=== PATIENT | female | born 1940 | race Caucasian/White ===

== ENCOUNTER 2016-12-15 08:45 | Inpatient (IN) ==
--- NOTE | 2016-12-15 09:18 | Emergency Department Note ---
Disposition Clinical Impression: Pyelonephritis Pneumonia Qualifiers: Pneumonia type: due to unspecified organism Laterality: unspecified laterality Lung location: unspecified part of lung Qualified Code(s): J18.9 - Pneumonia, unspecified organism Disposition: Admitted As Inpatient Condition: Good General Adult HPI - General Chief complaint: ED Dizziness Stated complaint: dizzy slid out of bed Time Seen by Provider: 12/15/16 08:56 Source: patient, EMS Mode of arrival: private vehicle Limitations: no limitations Nursing Notes Reviewed: Yes Vital Signs Reviewed: Yes - History of Present Illness HPI Narrative: Patient presents to the ED via EMS after "sliding out of bed" this morning. States she got up and sat on the side of the bed and when she went to get up she simply slid off the side of bed. She denies feeling lightheaded, dizzy or short of breath at the time. She did not experience any chest pain. States she just could not get back up on her own so her called EMS. She did not strike her head or lose consciousness. She does report a productive cough over the past 2 days with some green sputum. Denies any nasal congestion, rhinorrhea or sneezing. States she has had some chills off and on for the past 4 days but has not been aware of any fever. She does admit to intermittent shortness of breath with exertion over the past few months but has not sought medical care for this. She also has had occasional swelling in her legs but none currently. She has no history of any form of chronic lung disease. She is not aware of any history of heart failure. She also has had one week of urinary frequency, urgency and dysuria. States she was treated by her PCP for a UTI one month ago. States she had some vomiting a few days ago but no nausea now. Denies any recent travel or sick contacts. Pain Scale: 0 - Related Data Home Medications Medication Instructions Recorded Confirmed ALPRAZolam [Xanax 0.5 MG Tablet] 0.5 mg PO TID 04/30/15 12/15/16 Bimatoprost [Lumigan] 5 ml OP HS 04/30/15 12/15/16 Cyclosporine [Restasis] 1 each OP DAILY 04/30/15 12/15/16 Furosemide [Lasix] 20 mg PO BID 04/30/15 12/15/16 Metoprolol [Lopressor] 50 mg PO BID 04/30/15 12/15/16 Montelukast [Singulair] 10 mg PO HS 04/30/15 12/15/16 Sertraline [Zoloft] 100 mg PO DAILY 04/30/15 12/15/16 Biotin 1 mg PO DAILY 05/25/16 12/15/16 Calcium Carbonate [Calcium] 600 mg PO DAILY 05/25/16 12/15/16 Cyanocobalamin (B-12) [Vitamin B12] 1,000 mcg SQ QMONTH 05/25/16 12/15/16 Herbal Complex No.174 450 mg PO DAILY 05/25/16 12/15/16 [Echinacea-Goldenseal] Meloxicam 15 mg PO DAILY 05/25/16 12/15/16 Nitroglycerin [Nitrostat] 0.4 mg SL AD PRN 05/25/16 12/15/16 Omeprazole [PriLOSEC] 20 mg PO BID 05/25/16 12/15/16 Oxycodone HCl/Acetaminophen 1 each PO Q4H PRN 09/14/16 12/15/16 [Percocet 7.5-325 mg Tablet] Allergies Allergy/AdvReac Type Severity Reaction Status Date / Time doxycycline AdvReac Gastrointestinal Verified 12/15/16 08:46 Upset sutures AdvReac Blister Uncoded 12/15/16 08:46 Constitutional: Reports: chills. Denies: fever, weakness, weight change Eyes: Denies: eye pain, eye discharge, vision change ENT ED: Denies: ear pain, throat pain, dental pain, hearing loss, epistaxis, congestion, dysphagia Cardiovascular: Denies: chest pain, palpitations, dyspnea on exertion, edema, syncope Respiratory: Reports: as per HPI, cough, dyspnea, sputum production. Denies: wheezes, hemoptysis, stridor Gastrointestinal: Denies: abdominal pain, nausea, vomiting, diarrhea, constipation, hematemesis, melena, hematochezia Genitourinary: Reports: urgency, dysuria, frequency. Denies: hematuria, discharge Musculoskeletal: Denies: back pain, neck pain, arthralgia, myalgia Integumentary: Denies: rash, abrasion, lesions Neurological: Denies: headache, weakness, numbness, paresthesias, confusion, abnormal gait, vertigo Psychiatric: Denies: anxiety, depression, suicidal thoughts, homicidal thoughts , auditory hallucinations, visual hallucinations Endocrine: Denies: fatigue Hematological/Lymphatic: Denies: easy bleeding, easy bruising Allergic/Immunologic: Denies: facial swelling, urticaria Past Medical History - Past Medical History Medical history: Reports: coronary artery disease, GERD, hypertension Surgical history: Reports: cholecystectomy, hysterectomy Psychiatric history: Reports: anxiety, depression 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 - Social History Smoking Status: Never smoker Smokeless Tobacco Status: No Alcohol use: Reports: none Drug use: Reports: none Physical Exam - General Limitations: no limitations General appearance: alert, in no apparent distress - Head Head exam: atraumatic, normocephalic, normal inspection - Eye Eye exam: Present: normal appearance, PERRL, EOMI - ENT ENT exam: normal exam, normal oropharynx, mucous membranes moist - Neck Neck exam: Present: normal inspection, full ROM, trachea midline - Chest Chest inspection: Present: normal inspection, symmetric chest wall rise - Respiratory Respiratory exam: Present: normal lung sounds bilaterally. Absent: respiratory distress, accessory muscle use - Cardiovascular Cardiovascular exam: Present: regular rate, normal rhythm, normal heart sounds - Abdominal Exam Abdominal exam: Present: soft, Non-Tender. Absent: tenderness, distention, guarding, rebound, rigidity - Extremities Exam Extremities exam: Present: normal inspection, full ROM. Absent: tenderness, pedal edema - Back Exam Back exam: Present: normal inspection, full ROM. Absent: tenderness, CVA tenderness (R), CVA tenderness (L) - Neurological Exam Neurological exam: Present: alert, oriented X3 - Psychiatric Psychiatric exam: Present: normal affect, normal mood - Skin Skin exam: Present: warm, dry, intact, normal color Course Course Narrative: Patient presents to the ED with a few days of productive cough and chills as well as 1 week of urinary symptoms with what appears to have been any episode of generalized weakness this morning. On arrival oxygen saturation is 90-91% on room air but she has no respiratory distress. Lungs are clear to auscultation. She has a temperature of 100. Suspicion at this time would be for community acquired pneumonia and/or UTI or pyelonephritis. Will check routine labs and obtain chest x-ray. - Reevaluation(s) Reevaluation #1: Laboratory studies are notable for leukocytosis with left shift. Lactic acid is normal/ Urinalysis is positive for UTI. Chest x-ray shows only some basilar atelectasis with no overt pneumonia although this still a suspicion given her low oxygen saturation and productive cough. Patient does meet criteria for pyelonephritis in addition and based on her symptomatology, comorbidities and low oxygen saturation will require admission. I discussed all test results with the patient and she is agreeable to admission. Will give Tylenol for the low-grade fever and start IV antibiotics. Will contact the hospitalist on-call , Dr. Menard for admission. Reevaluation #2: I spoke to the hospitalist on-call, Dr. Menard, who has agreed to admit the patient. Vital Signs O2 Sat by Pulse Oximetry 94 12/15/16 08:46 Temperature 100.0 F H 12/15/16 08:47 Pulse Rate 79 12/15/16 11:53 Respiratory Rate 18 12/15/16 11:53 Blood Pressure 129/53 12/15/16 11:53 O2 Sat by Pulse Oximetry 95 12/15/16 11:53 Oxygen Delivery Oxygen Delivery Nasal Cannula Medical Decision Making - Differential Diagnosis Pneumonia, UTI, possible arthritis, sepsis, urosepsis - Medical Records Medical records reviewed: Yes I reviewed the patient's medical records. - Lab Data Lab results reviewed: Yes I reviewed the patient's lab results. Result diagrams: 12/15/16 09:25 12/15/16 09:25 Lab Results 12/15/16 12/15/16 12/15/16 Range/Units 09:25 09:25 09:25 WBC 15.1 H (4.3-11.1) K/mcL RBC 4.72 (3.82-4.97) M/mcL Hgb 13.5 (11.5-15.4) g/dL Hct 40.5 (35.3-44.9) % MCV 85.8 (83.0-100.0) fL MCH 28.6 (28.0-33.3) pg MCHC 33.3 (31.6-35.5) g/dL RDW 14.6 H (11.5-14.5) % Plt Count 187 (140-400) K/mcL MPV 11.2 (9.4-12.4) fL Immature Gran % 1.3 (0-4) % Seg Neutrophils % 88.0 % Lymphocytes % 2.9 % Monocytes % 7.5 % Eosinophils % 0.0 % Basophils % 0.3 % Neutrophils # 13.3 H (1.6-8.9) K/mcL Lymphocytes # 0.4 L (0.6-4.6) K/mcL Monocytes # 1.1 (0.0-1.3) K/mcL Eosinophils # 0.0 (0.0-0.6) K/mcL Basophils # 0.1 (0.0-0.2) K/mcL VBG Lactic Acid 1.4 (0.5-2.2) mmol/L Sodium 135 L (136-145) mEq/L Potassium 4.1 (3.5-4.5) mEq/L Chloride 100 (98-109) mEq/L Carbon Dioxide 24 (19-29) mEq/L BUN 23 H (7-20) mg/dL Creatinine 1.00 (0.57-1.11) mg/dL Est GFR ( Amer) > 60 (> 60) Est GFR (Non-Af Amer) 54 L (> 60) BUN/Creatinine Ratio 23 (6-26) Glucose 217 H (70-99) mg/dL Calculated Osmolality 290 (280-300) Calcium 9.3 (8.6-10.8) mg/dL B-Natriuretic Peptide (0-100) pg/mL Urine Color (Yellow) Urine Clarity (Clear) Urine pH (5.0-8.0) pH Units Ur Specific [place] (1.010-1.025) Urine Protein (Neg-Trace) mg/dL Urine Glucose (UA) (Normal) mg/dL Urine Ketones (Negative) mg/dL Urine Blood (Negative) Urine Nitrite (Negative) Urine Bilirubin (Negative) Urine Urobilinogen (Normal) mg/dL Ur Leukocyte Esterase (Negative) Urine Microscopic RBC (0-3) per hpf Urine Microscopic WBC (0-3) per hpf Ur Squamous Epith Cells (None-Few) per lpf Urine Bacteria (None-Few) per hpf Urine Mucus (Few) Ur Culture Indicated? (NO) 12/15/16 12/15/16 Range/Units 09:25 10:04 WBC (4.3-11.1) K/mcL RBC (3.82-4.97) M/mcL Hgb (11.5-15.4) g/dL Hct (35.3-44.9) % MCV (83.0-100.0) fL MCH (28.0-33.3) pg MCHC (31.6-35.5) g/dL RDW (11.5-14.5) % Plt Count (140-400) K/mcL MPV (9.4-12.4) fL Immature Gran % (0-4) % Seg Neutrophils % % Lymphocytes % % Monocytes % % Eosinophils % % Basophils % % Neutrophils # (1.6-8.9) K/mcL Lymphocytes # (0.6-4.6) K/mcL Monocytes # (0.0-1.3) K/mcL Eosinophils # (0.0-0.6) K/mcL Basophils # (0.0-0.2) K/mcL VBG Lactic Acid (0.5-2.2) mmol/L Sodium (136-145) mEq/L Potassium (3.5-4.5) mEq/L Chloride (98-109) mEq/L Carbon Dioxide (19-29) mEq/L BUN (7-20) mg/dL Creatinine (0.57-1.11) mg/dL Est GFR ( Amer) (> 60) Est GFR (Non-Af Amer) (> 60) BUN/Creatinine Ratio (6-26) Glucose (70-99) mg/dL Calculated Osmolality (280-300) Calcium (8.6-10.8) mg/dL B-Natriuretic Peptide 155 H (0-100) pg/mL Urine Color Yellow (Yellow) Urine Clarity Slightly Cloudy A (Clear) Urine pH 5.5 (5.0-8.0) pH Units Ur Specific [place] 1.015 (1.010-1.025) Urine Protein 30 H (Neg-Trace) mg/dL Urine Glucose (UA) Normal (Normal) mg/dL Urine Ketones Negative (Negative) mg/dL Urine Blood Small H (Negative) Urine Nitrite Negative (Negative) Urine Bilirubin Negative (Negative) Urine Urobilinogen Normal (Normal) mg/dL Ur Leukocyte Esterase Large H (Negative) Urine Microscopic RBC 3-5 H (0-3) per hpf Urine Microscopic WBC TNTC H (0-3) per hpf Ur Squamous Epith Cells Few (None-Few) per lpf Urine Bacteria Moderate H (None-Few) per hpf Urine Mucus Few (Few) Ur Culture Indicated? YES A (NO) - Radiology Data Radiology results reviewed: Yes I reviewed the patient's radiology results. ITS Impressions Chest X-Ray 12/15/16 09:15 IMPRESSION: 1. No definite acute cardiopulmonary abnormality. 2. There appears to be minimal left basilar atelectasis. D/ / Eduard Washington MD / Eduard Washington MD Interpreting Provider: Eduard Washington MD
[2016-12-15 10:00] LABS: Basophils # 0.1 K/mcL (0.0-0.2); Basophils % 0.3 %; Hematocrit 40.5 % (35.3-44.9); Hemoglobin 13.5 g/dL (11.5-15.4); Immature Granulocytes % 1.3 % (0-4); Lymphocytes # 0.4 K/mcL (0.6-4.6); Lymphocytes % 2.9 %; Mean Corpuscular HGB Conc 33.3 g/dL (31.6-35.5); Mean Corpuscular Hemoglobin 28.6 pg (28.0-33.3); Mean Corpuscular Volume 85.8 fL (83.0-100.0); Mean Platelet Volume 11.2 fL (9.4-12.4); Monocytes # 1.1 K/mcL (0.0-1.3); Monocytes % 7.5 %; Neutrophils # 13.3 K/mcL (1.6-8.9); Platelet Count 187 K/mcL (140-400); Red Blood Count 4.72 M/mcL (3.82-4.97); Red Cell Distribution Width 14.6 % (11.5-14.5)
[2016-12-15 10:10] LABS: BUN/Creatinine Ratio 23 (6-26); Blood Urea Nitrogen 23 mg/dL (7-20); Calcium 9.3 mg/dL (8.6-10.8); Carbon Dioxide 24 mEq/L (19-29); Chloride 100 mEq/L (98-109); Glucose 217 mg/dL (70-99); Osmolality,Calculated 290 (280-300); Potassium 4.1 mEq/L (3.5-4.5); Sodium 135 mEq/L (136-145); eGFR For African Americans > 60 (> 60); eGFR For Non-African Americans 54 (> 60)
[2016-12-15 10:11] LABS: Bilirubin,Urine Negative (Negative); Blood,Urine Small (Negative); Clarity,Urine Slightly Cloudy (Clear); Color,Urine Yellow (Yellow); Glucose,Urine (UA) Normal (Normal); Ketones,Urine Negative (Negative); Leukocyte Esterase,Urine Large (Negative); Nitrite,Urine Negative (Negative); PH,Urine 5.5 pH Units (5.0-8.0); Protein,Urine 30 mg/dL (Neg-Trace); Specific Gravity,Urine 1.015 (1.010-1.025); Urobilinogen,Urine Normal (Normal)
[2016-12-15 10:29] LABS: Bacteria,Urine Moderate per hpf (None-Few); Mucus,Urine Few (Few); Squamous Epithelial Cell,Urine Few per lpf (None-Few); WBC,Urine TNTC per hpf (0-3)
[2016-12-15] MEDS ORDERED: Levofloxacin 750 MG/150 ML 750 MG/150 ML BAG IVPB ONE (11:10)
[2016-12-15] MEDS ORDERED: Acetaminophen 325 MG TABLET PO ONE (11:10)
[2016-12-15] MEDS ORDERED: ALPRAZolam 0.5 MG TABLET PO PRN (12:51)
[2016-12-15] MEDS ORDERED: *HR* OxyCODONE/APAP 7.5/325 TABLET PO PRN (12:51)
[2016-12-15] MEDS ORDERED: Naloxone 0.4 MG/ML INJ IVP PRN ×2 (12:58→13:21)
[2016-12-15] MEDS: *HR* OxyCODONE/APAP 7.5/325 TABLET PO PRN ×2 (13:57→22:17)
[2016-12-15] MEDS ORDERED: Furosemide 20 MG TABLET PO SCH ×2 (17:00→21:00)
[2016-12-16] MEDS: ALPRAZolam 0.5 MG TABLET PO PRN ×2 (00:13→22:18)
[2016-12-16 04:35] LABS: Acinetobacter baumannii by PCR Not Detected (Not Detect); Candida albicans by PCR Not Detected (Not Detect); Candida glabrata by PCR Not Detected (Not Detect); Candida krusei by PCR Not Detected (Not Detect); Candida parapsilosis by PCR Not Detected (Not Detect); Candida tropicalis by PCR Not Detected (Not Detect); Enterococcus by PCR Not Detected (Not Detect); Klebsiella oxytoca by PCR Not Detected (Not Detect); Klebsiella pneumoniae by PCR Not Detected (Not Detect); Pseudomonas aeruginosa by PCR Not Detected (Not Detect); Serratia marcescens by PCR Not Detected (Not Detect); Staphylococcus aureus by PCR Not Detected (Not Detect); Streptococcus agalactiae(B)PCR Not Detected (Not Detect); Streptococcus by PCR Not Detected (Not Detect); Streptococcus pneumoniae PCR Not Detected (Not Detect); Streptococcus pyogenes (A) PCR Not Detected (Not Detect); blaKPC Carbapenem-Resist Gene Not Detected (Not Detect)
[2016-12-16 04:40] LABS: Escherichia coli by PCR ***DETECTED*** (Not Detect)
[2016-12-16 05:10] LABS: Basophils # 0.1 K/mcL (0.0-0.2); Basophils % 0.5 %; Eosinophils # 0.1 K/mcL (0.0-0.6); Eosinophils % 0.6 %; Hematocrit 37.5 % (35.3-44.9); Hemoglobin 12.3 g/dL (11.5-15.4); Immature Granulocytes % 1.4 % (0-4); Lymphocytes # 0.7 K/mcL (0.6-4.6); Mean Corpuscular HGB Conc 32.8 g/dL (31.6-35.5); Mean Corpuscular Hemoglobin 28.1 pg (28.0-33.3); Mean Corpuscular Volume 85.8 fL (83.0-100.0); Monocytes % 10.2 %; Neutrophils # 7.8 K/mcL (1.6-8.9); Platelet Count 179 K/mcL (140-400); Red Blood Count 4.37 M/mcL (3.82-4.97); Red Cell Distribution Width 14.7 % (11.5-14.5); Segmented Neutrophils % 80.3 %
[2016-12-16 05:32] LABS: BUN/Creatinine Ratio 25 (6-26); Blood Urea Nitrogen 21 mg/dL (7-20); Calcium 9.3 mg/dL (8.6-10.8); Carbon Dioxide 24 mEq/L (19-29); Chloride 102 mEq/L (98-109); Glucose 169 mg/dL (70-99); Osmolality,Calculated 291 (280-300); Sodium 137 mEq/L (136-145); eGFR For African Americans > 60 (> 60); eGFR For Non-African Americans > 60 (> 60)
[2016-12-16] MEDS: *HR* OxyCODONE/APAP 7.5/325 TABLET PO PRN ×3 (07:00→21:02)
[2016-12-16] MEDS: Furosemide 20 MG TABLET PO SCH (08:05)
--- NOTE | 2016-12-16 09:23 | Internal Med History&Physical ---
Date of Encounter: 12/15/16 Time of Encounter: 16:30 Assessment and Plan (1) Pyelonephritis Current visit: Yes Status: Acute She was given IV Levaquin in emergency room. I will give IV Rocephin with lactobacillus. Urine culture has been sent. (2) Azotemia Current visit: Yes Status: Acute Will hold meloxicam and reduce Lasix dose. Recheck labs in a.m. (3) Hyperglycemia Current visit: Yes Status: Acute We will check FBS in a.m. and hemoglobin A1c. (4) Hypertension Current visit: Yes Status: Chronic Continue Lopressor and reduced Lasix dose. Qualifiers: Hypertension type: essential hypertension Qualified Code(s): I10 - Essential (primary) hypertension Internal Medicine - H&P: HPI Chief complaint: Fever and UTI Admitted From: Home Plans for Post Hospital Care: Home History of present illness: Ms. Dumont is a 76 year old female who came to emergency room stating she had onset of fever and urinary tract infection symptoms the previous evening. She attempted to get out of bed approximately 7 AM the morning of admission but was weak and slid to the floor without injury. She was brought to emergency room and evaluated and found to have evidence of UTI. She was [facility] floor for ongoing care needs. She has had multiple UTIs in the past with the last one approximately 3 months ago. She has had bladder suspension surgery on 2 occasions in the past. She has not had visible hematuria. She had nausea but no vomiting. Past Med Surg Social Fam HX - Past Medical History Medical history: coronary artery disease, GERD, hypertension Psychiatric history: anxiety, depression - Past Surgical History Surgical History: cholecystectomy, hysterectomy - Social History Smoking Status: Never smoker Smokeless Tobacco Status: No Alcohol use: none Drug use: none Internal Medicine - H&P: Meds ALPRAZolam [Xanax 0.5 MG Tablet] 0.5 mg PO TID 04/30/15 [History] Bimatoprost [Lumigan] 5 ml OP HS 04/30/15 [History] Cyclosporine [Restasis] 1 each OP DAILY 04/30/15 [History] Furosemide [Lasix] 20 mg PO BID 04/30/15 [History] Metoprolol [Lopressor] 50 mg PO BID 04/30/15 [History] Montelukast [Singulair] 10 mg PO HS 04/30/15 [History] Sertraline [Zoloft] 100 mg PO DAILY 04/30/15 [History] Biotin 1 mg PO DAILY 05/25/16 [History] Calcium Carbonate [Calcium] 600 mg PO DAILY 05/25/16 [History] Cyanocobalamin (B-12) [Vitamin B12] 1,000 mcg SQ QMONTH 05/25/16 [History] Herbal Complex No.174 [Echinacea-Goldenseal] 450 mg PO DAILY 05/25/16 [History] Meloxicam 15 mg PO DAILY 05/25/16 [History] Nitroglycerin [Nitrostat] 0.4 mg SL AD PRN 05/25/16 [History] Omeprazole [PriLOSEC] 20 mg PO BID 05/25/16 [History] Oxycodone HCl/Acetaminophen [Percocet 7.5-325 mg Tablet] 1 each PO Q4H PRN 09/14 [History] Allergies doxycycline Adverse Reaction (Verified 12/15/16 08:46) Gastrointestinal Upset sutures Adverse Reaction (Uncoded 12/15/16 08:46) Blister Suture glue All Systems PM: A 10-system review of systems was performed and is negative for pertinent findings except as documented above in the HPI. Review of systems: Gen.: She states her weight has been stable the past few months Cardiovascular: She has history of hypertension but no HI heart failure angina DVT or pulmonary embolus Respiratory: She is a lifelong nonsmoker and has no known chronic lung disease GI: She has had cholecystectomy. She has occasional GERD symptoms. She denies disorders of her liver or exocrine pancreas : As per history of present illness Neurologic: She denies large distribution strokes or seizures Endocrine: She denies diabetes thyroid disease or hyperlipidemia Hematology/oncology: She denies blood disorders cancers or anemia Psychiatric: She has history of depression and anxiety. 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 She has had back surgery with lucas placement. She denies gout. - Constitutional Vitals: Temp Pulse Resp BP Pulse Ox 98.9 F 119 16 129/83 95 12/16/16 06:31 12/16/16 06:31 12/16/16 06:31 12/16/16 06:31 12/16/16 06:31 Exam: Gen.: She is a well-developed well-nourished female who appears in no severe distress at present time. HEENT: Head is atraumatic and normocephalic. Eyes: EOMI. There is no scleral icterus. Mouth: Mucosa is moist. Neck: Supple and nontender. There is no thyromegaly or adenopathy noted. Heart: Regular without murmurs gallops or ectopics. Lungs: No wheezes or crackles are heard. Abdomen: Soft and nontender. No masses or guarding noted. Extremities: There is no cyanosis edema or clubbing noted. Dorsalis pedis and posterior tibial pulses are trace to 1+ palpable bilaterally. She has DJD changes of her hands. Neurologic: Mental status: She is talkative and a good historian. Cranial nerves: Smile is symmetric. Forehead wrinkles bilaterally. Tongue protrudes midline. EOMI. Motor: There is no pronator drift. Cerebellar: Finger to nose is intact bilaterally. Skin: Warm and dry Internal Med - H&P Results - Labs CBC & Chem 7: 12/16/16 04:31 12/16/16 04:31 Labs: Short CBC 12/16/16 Range/Units 04:31 WBC 9.7 (4.3-11.1) K/mcL Hgb 12.3 (11.5-15.4) g/dL Hct 37.5 (35.3-44.9) % Plt Count 179 (140-400) K/mcL Neutrophils # 7.8 (1.6-8.9) K/mcL BMP 12/16/16 04:31 Sodium 137 Potassium 4.0 Chloride 102 Carbon Dioxide 24 BUN 21 H Creatinine 0.84 Glucose 169 H Calcium 9.3 - VTE Reasons for not Prescribing Prophylaxis: Treatment not Indicated - Low risk for VTE
--- NOTE | 2016-12-16 10:42 | Internal Med Progress Note ---
Date of Encounter: 12/16/16 Time of Encounter: 10:30 - Assessment and plan (1) Pyelonephritis Current Visit: Yes Status: Acute Assessment and plan: December 16. Lab results show Escherichia coli in urine and likely blood cultures. Sensitivity report is pending. Continue Rocephin with lactobacillus. (2) Azotemia Current Visit: Yes Status: Resolved Assessment and plan: December 16. Now resolved. Remain off meloxicam and on reduced Lasix dose. (3) Hyperglycemia Current Visit: Yes Status: Acute Assessment and plan: December 16. We will check hemoglobin A1c in a.m. (4) Hypertension Current Visit: Yes Status: Chronic Assessment and plan: December 16. Continue Lopressor and reduce Lasix dose. Qualifiers: Hypertension type: essential hypertension Qualified Code(s): I10 - Essential (primary) hypertension - Subjective Interval history: December 16. She has no new complaints. - Constitutional Vitals: Temp Pulse Resp BP Pulse Ox 98.4 F 69 16 121/69 95 12/16/16 10:16 12/16/16 10:16 12/16/16 10:16 12/16/16 10:16 12/16/16 06:31 Exam: She is resting comfortably in bed. Her affect is bright and cheerful. I reviewed her medications and lab reports. Internal Medicine: Result - Labs CBC & Chem 7: 12/16/16 04:31 12/16/16 04:31 Labs: Short CBC 12/16/16 Range/Units 04:31 WBC 9.7 (4.3-11.1) K/mcL Hgb 12.3 (11.5-15.4) g/dL Hct 37.5 (35.3-44.9) % Plt Count 179 (140-400) K/mcL Neutrophils # 7.8 (1.6-8.9) K/mcL BMP 12/16/16 04:31 Sodium 137 Potassium 4.0 Chloride 102 Carbon Dioxide 24 BUN 21 H Creatinine 0.84 Glucose 169 H Calcium 9.3 - VTE Reasons for not Prescribing Prophylaxis: Treatment not Indicated - Low risk for VTE Consult Discharge Plan - Plan Referrals: Cam Silva Jr, MD [Primary Care Provider] - 1 week
[2016-12-16] MEDS: *HR* Enoxaparin 40 MG/0.4 ML SYRINGE SQ SCH (14:28)
[2016-12-16] MEDS: Lactobacillus 1 EACH CAP.SPRINK PO SCH (21:02)
[2016-12-17] MEDS: *HR* OxyCODONE/APAP 7.5/325 TABLET PO PRN ×2 (01:23→05:46)
[2016-12-17] MEDS: *HR* Enoxaparin 40 MG/0.4 ML SYRINGE SQ SCH (05:35)
[2016-12-17] MEDS: Furosemide 20 MG TABLET PO SCH (08:49)
[2016-12-17] MEDS: Lactobacillus 1 EACH CAP.SPRINK PO SCH (08:49)
[2016-12-17 10:23] VITALS: BP 138/75
--- NOTE | 2016-12-17 11:54 | Discharge Summary ---
Date of Encounter: 12/17/16 Time of Encounter: 11:40 - Discharge Diagnosis (1) Pyelonephritis Priority: Primary Status: Acute (2) Azotemia Priority: Secondary Status: Resolved (3) Hyperglycemia Priority: Secondary Status: Acute (4) Hypertension Priority: Secondary Status: Chronic Qualifiers: Hypertension type: essential hypertension Qualified Code(s): I10 - Essential (primary) hypertension - Discharge Medications Prescriptions: Cefuroxime PO [Ceftin] 500 mg PO Q12HR #10 tablet Lactobacillus [Culturelle] 1 each PO BID #10 cap.sprink Home Medications: ALPRAZolam [Xanax 0.5 MG Tablet] 0.5 mg PO TID 04/30/15 [History] Bimatoprost [Lumigan] 5 ml OP HS 04/30/15 [History] Cyclosporine [Restasis] 1 each OP DAILY 04/30/15 [History] Metoprolol [Lopressor] 50 mg PO BID 04/30/15 [History] Montelukast [Singulair] 10 mg PO HS 04/30/15 [History] Sertraline [Zoloft] 100 mg PO DAILY 04/30/15 [History] Biotin 1 mg PO DAILY 05/25/16 [History] Calcium Carbonate [Calcium] 600 mg PO DAILY 05/25/16 [History] Cyanocobalamin (B-12) [Vitamin B12] 1,000 mcg SQ QMONTH 05/25/16 [History] Herbal Complex No.174 [Echinacea-Goldenseal] 450 mg PO DAILY 05/25/16 [History] Nitroglycerin [Nitrostat] 0.4 mg SL AD PRN 05/25/16 [History] Omeprazole [PriLOSEC] 20 mg PO BID 05/25/16 [History] Oxycodone HCl/Acetaminophen [Percocet 7.5-325 mg Tablet] 1 each PO Q4H PRN 09/14 [History] Cefuroxime PO [Ceftin] 500 mg PO Q12HR #10 tablet 12/17/16 [Rx] Furosemide [Lasix] 20 mg PO DAILY #0 12/17/16 [Rx] Lactobacillus [Culturelle] 1 each PO BID #10 cap.sprink 12/17/16 [Rx] Allergies/Adverse Reactions: Allergies doxycycline Adverse Reaction (Verified 12/15/16 08:46) Gastrointestinal Upset sutures Adverse Reaction (Uncoded 12/15/16 08:46) Blister Suture glue Date of admission: 12/16/16 14:04 Primary care physician: Cam Silva Jr, MD - Patient Status Disposition: Home, Self-Care Condition: Good Functional capacity at discharge: independent ambulation Overall status at discharge: patient is progressing back to baseline - Discharge Instructions Follow Up With: Cam Silva Jr, MD [Primary Care Provider] - 1 week - Diet and Activity Activity: resume usual activities as tolerated Diet: advance to your usual diet Hospital course: Ms. Dumont is a 76 year old female who came to emergency room stating she had onset of fever and urinary tract infection symptoms the previous evening. She attempted to get out of bed approximately 7 AM the morning of admission but was weak and slid to the floor without injury. She was brought to emergency room and evaluated and found to have evidence of UTI. She was admitted to [facility] for ongoing care needs. Initial orders were written by the emergency room physician. I saw her on December 15 and performed the history and physical. She was given IV Levaquin in emergency room. I changed her to IV Rocephin and added lactobacillus. Urine culture returned showing Escherichia coli. Blood cultures [2/] were positive for gram-negative rods with final report pending time of this dictation. I suspect the blood cultures will show Escherichia coli also. She had normalization of WBC and improvement in the differential by December 16. She remained afebrile after the first hospital day. She will be discharged home with 5 additional days of antibiotic and probiotic. Her creatinine improved to 0.84 with IV fluids and withholding meloxicam and reduced Lasix dose. She will remain off meloxicam and on reduced Lasix at discharge. Hyperglycemia can be further evaluated by her PCP to rule out DM 2. On December 17 she felt stable for discharge home. She will follow with her PCP Dr. Silva within 1 week. - Time Spent with Patient Total time spent providing and/or coordinating discharge services: - Constitutional Vitals: Temp Pulse Resp BP Pulse Ox 98.0 F 70 16 138/75 95 12/17/16 10:21 12/17/16 10:21 12/17/16 10:21 12/17/16 10:21 12/17/16 10:21 - VTE Reasons for not Prescribing Prophylaxis: Treatment not Indicated - Low risk for VTE
== END 2016-12-17 12:59 | disposition home or self-care (01) | DRG 872 ==
LOC: INPPIK 08:45 → EMEROOPIK 08:45 → INPPIK 12:57
PROVIDERS: ADMIT Internal Medicine; ATTEND Internal Medicine